=== PATIENT | female | born 1950 | race Caucasian/White ===

== ENCOUNTER 2017-08-07 13:42 | Emergency (ER) | payer MEDICARE, OTHER, SELFPAY ==
--- NOTE | 2017-08-07 | CT_ITS ---
CT abdomen pelvis wo con Ordering Physician: Bebe Levin MD Patient Age: 67 years: Female HISTORY: ITS.REASON: STONE PROTOCOL TECHNIQUE: Helical CT scanning performed through the abdomen and pelvis with no oral nor IV contrast utilized. Sagittal coronal reconstructions on CT workstation. Previous CT abdomen pelvis November 19, 2014 used for comparison. Findings. Lung bases are clear. Small hiatal hernia with Diffuse wall thickening GE junction distal esophagus region.. Heart upper normal in size Abdomen/pelvis. Lack of oral and IV contrast decreases sensitivity Liver, spleen, pancreas, adrenals unremarkable on this noncontrast study Gallbladder. No calcified stones possible sludge. RIGHT KIDNEY. Hydronephrosis. Small 3 mm projected over the posterior bladder on axial image 104 and is located at the distal limits of the right UVJ on the verge of passing into the bladder. Mild diffuse dilatation of the right ureter. Mild hydronephrosis. Mild stranding about the right kidney reflecting the obstructive uropathy less likely developing pam nephritis,..-Favor perinephric stranding secondary to the moderate hydronephrosis. Nonobstructive intrarenal calculi are noted at right kidney.. New since 2014:. These include 3 mm nonobstructive calculus seen at the posterior lower pole right kidney. (Axial image 48).... Also 32.5 mm calculus in some very tiny flecks of calcification upper pole calyx right kidney axial image 39 LEFT KIDNEY. Nonobstructive calculi which have become apparent since 2014 region millimeter calculus upper pole left kidney. Smaller 2 mm calculus midportion. Slightly more prominent just over 3 mm calculus upper pole. No adnexal masses. No retroperitoneal or mesenteric adenopathy nor pelvic adenopathy. No free fluid No bowel dilatation or obstruction. Terminal ileum is normal. Moderate stool throughout the colon. No evidence of appendicitis. Pelvis. Mild diffuse wall thickening of bladder could reflect cystitis. Again the catheter is projected over the posterior right bladder noted. Small postmenopausal uterus Osseous: L4/5. Trace degenerative listhesis L4 on L5. Mild disc space narrowing but with pronounced facet hypertrophy/arthropathy features combine to yield moderate central canal stenosis. These features have developed since 2013.. L5/S1 with prominent facet hypertrophy.. Moderate facet arthropathy L3/ /4 IMPRESSION:. 1. Obstructive uropathy on right. Mild hydronephrosis & mild dilatation entire right ureter-down to a small 3 mm calculus distal most right UVJ, on the verge verge of passing through the right UVJ into the bladder.. Stranding about right kidney most likely reflecting the moderate obstructive uropathy. Less likely developing pyelonephritis 2. Numerous other punctate nonobstructive calculi at the knees bilaterally additionally noted 3. Other observations in text.:. ... Small hiatal hernia with upper normal thickness at GE junction/. ...., Progression of degenerative changes spine Since 2014. Moderate central canal stenosis now seen at L4/5 level
[2017-08-07 13:54] VITALS: BP 175/97; PULSE 73; RESP 18; TEMP 36.5; O2SAT 98; BMI 24.7
[2017-08-07 14:26] LABS: Microscopic, Urine URINE MICROSCOPIC (MICROSCOPIC)
[2017-08-07 14:33] LABS: Basophils % 0.3 % (0.1-2.0); Eosinophils # 0.2 K/mm3 (0.0-0.4); Eosinophils % 1.3 % (0.1-12.0); Hemoglobin 13.7 g/dL (12.2-16.2); Lymphocytes # 1.8 K/mm3 (0.7-4.5); Lymphocytes % 16.3 K/mm3 (10-50); Mean Corpuscular HGB Conc 33.4 g/dL (31.8-35.4); Mean Corpuscular Hemoglobin 29.1 pg (27.0-31.2); Mean Corpuscular Volume 86.9 fl (81-99); Mean Platelet Volume 7.8 fl (7.4-10.4); Monocytes # 0.5 K/mm3 (0.1-1.0); Monocytes % 4.1 % (1.7-9.3); Neutrophils # 8.8 K/mm3 (1.8-7.8); Platelet Count 375 K/mm3 (142-424); Red Blood Count 4.72 M/mm3 (4.20-5.40); White Blood Count 11.2 K/mm3 (4.8-10.8)
[2017-08-07 14:34] LABS: Appearance,Urine CLOUDY (Clear); Bilirubin,Urine Negative (Negative); Blood, Urine LARGE (Negative); Color,Urine YELLOW (Yellow); Glucose,Urine (UA) Negative (Negative); Ketones,Urine 40 (Negative); Leukocyte Esterase,Urine Negative (Negative); Nitrate,Urine Negative (Negative); Protein,Urine Negative (Negative); Urobilinogen,Urine 0.2 EU/dl (0.2)
[2017-08-07 14:45] LABS: Bacteria,Urine 1+ /lpf; Mucus,Urine 1+ /lpf; RBC,Urine 20-50 #/hpf (0-3)
[2017-08-07 14:49] LABS: Blood Urea Nitrogen 12 mg/dL (7-18); Creatinine Clearance Estimated 41 mL/min (0-300); Estimated Glomerular Filt Rate 41 ml/min (>60); GFR (African American) 50 ML/MIN (>60)
[2017-08-07 15:03] LABS: Anion Gap 19.1 mEq/L (5-15); Blood Urea Nitrogen 12 mg/dL (7-18); Carbon Dioxide 19 mmol/L (21.0-32.0); Chloride 105 mmol/L (98-107); Creatinine Clearance Estimated 41 mL/min (0-300); Estimated Glomerular Filt Rate 41 ml/min (>60); GFR (African American) 50 ML/MIN (>60); Glucose 138 mg/dL (74-106); Potassium 3.1 mmoL/L (3.5-5.1); Sodium 140 mmol/L (136-145)
[2017-08-07 15:04] LABS: Alanine Aminotransferase 23 U/L (12-78); Alkaline Phosphatase 103 U/L (46-116); Aspartate Amino Transferase 18 U/L (15-37); Bilirubin,Total 0.7 mg/dL (0.2-1.0); Calcium 9.1 mg/dL (8.5-10.1); Globulin 3.9 gm/dl (1.3-3.2); Total Protein,Serum 7.9 gm/dL (6.4-8.2)
--- NOTE | 2017-08-07 15:30 | [facility]H.EDGENADL ---
ED Disposition Clinical Impression: Right distal ureteral calculus, Dehydration, UTI (urinary tract infection), Hypokalemia, Renal insufficiency Disposition: Left Against Medical Advice Condition on Discharge: Good Additional Instructions: The patient refused to be admitted, because she has dogs to care for. I advised her that she will need to be admitted for IV fluids and antibiotics but she declined. He stated that she will go home and drink plenty of fluids. Drink plenty of fluids. Start on antibiotics. Follow-up with Dr. Mckeon in the morning. Referrals: Remberto Mckeon MD [Primary Care Provider] - - Critical Care Critical Care Time: No Attestation: On 08/07/17, the high probability of a clinically significant, sudden or life threatening deterioration of the following system(s) required my full and direct attention, intervention and personal management. The time I documented below is in addition to time spent performing reported procedures but includes the following listed in this critical care notation. Medical Decision Making - Delta Inquiry Pt receiving controlled substance: No Delta was queried for this patient: No Vital Signs: 08/07/17 13:54 08/07/17 16:43 Temperature 97.7 F 98.8 F Temperature Source Oral Oral Pulse Rate 75 Pulse Rate [Right Brachial] 73 Respiratory Rate 18 18 Blood Pressure 156/86 Blood Pressure [Right Arm] 175/97 Blood Pressure Mean [Right Arm] 123 Blood Pressure Source Automatic Cuff Blood Pressure Source [Right Arm] Automatic Cuff Blood Pressure Position Sitting Blood Pressure Position [Right Arm] Sitting 02 Sat by Pulse Oximetry 98 Oxygen Delivery Method Room Air Room Air Oxygen Flow Rate (LPM) 98 - Lab Data Lab Results 08/07/17 14:20: WBC 11.2 H, RBC 4.72, Hgb 13.7, Hct 41.0, MCV 86.9, MCH 29.1, MCHC 33.4, RDW 13.0, Plt Count 375, MPV 7.8, Neut % (Auto) 78.0, Lymph % (Auto) 16.3, [place] % (Auto) 4.1, Eos % (Auto) 1.3, Baso % (Auto) 0.3, Neut # (Auto) 8.8 H, Lymph # (Auto) 1.8, [place] # (Auto) 0.5, Eos # (Auto) 0.2, Baso # (Auto) 0.0 08/07/17 14:20: Sodium 140, Potassium 3.1 L, Chloride 105, Carbon Dioxide 19 L, Anion Gap 19.1 H, BUN 12, Creatinine 1.30 H, Estimated Creat Clear 41, Estimated GFR 41 L, Est GFR ( Amer) 50 L, Glucose 138 H, Calcium 9.1, Total Bilirubin 0.7, AST 18, ALT 23, Alkaline Phosphatase 103, Total Protein 7.9, Albumin 4.0, Globulin 3.9 H, Albumin/Globulin Ratio 1.0 L 08/07/17 14:20: BUN 12, Creatinine 1.30 H, Estimated Creat Clear 41, Estimated GFR 41 L, Est GFR ( Amer) 50 L 08/07/17 14:20: Urine Color Yellow, Urine Appearance Cloudy, Urine pH 6.0, Ur Specific [place] 1.020, Urine Protein Negative, Urine Glucose (UA) Negative, Urine Ketones 40, Urine Blood Large, Urine Nitrate Negative, Urine Bilirubin Negative, Urine Urobilinogen 0.2, Ur Leukocyte Esterase Negative, Urine RBC 20-50, Urine WBC 3-5, Ur Squamous Epith Cells 3-5, Urine Bacteria 1+, Urine Mucus 1+ Result diagrams: 08/07/17 14:20 08/07/17 14:20 Orders (Tests/Meds): ED MEDICATIONS Discontinued Medications Generic Name Dose Route Start Last Admin Trade Name Collins PRN Reason Stop Dose Admin Sodium Chloride 1,000 mls @ 999 mls/hr 08/07/17 14:15 08/07/17 14:14 Sod Chloride 0.9% 1000ml Bag IV 08/07/17 15:15 999 mls/hr .Q1H1M REJI Administration Sodium Chloride 1,000 mls @ 999 mls/hr 08/07/17 15:45 08/07/17 15:51 Sod Chloride 0.9% 1000ml Bag IV 08/07/17 16:45 999 mls/hr .Q1H1M REJI Administration Ceftriaxone Sodium 1 gm/ 50 mls @ 100 mls/hr 08/07/17 15:40 08/07/17 15:50 Sodium Chloride IV 08/07/17 16:09 100 mls/hr ONCE ONE Administration Ketorolac Tromethamine 30 mg 08/07/17 14:07 08/07/17 14:13 Toradol 30mg/Ml Vial IV 08/07/17 14:08 30 mg ONCE ONE Administration Ondansetron HCl 4 mg 08/07/17 14:08 08/07/17 14:13 Zofran 4mg/2ml Vial IV 08/07/17 14:09 4 mg ONCE ONE Administration Potassium Chlo
--- NOTE | 2017-08-07 15:34 | ED_ITS ---
ED Disposition Clinical Impression: Right distal ureteral calculus, Dehydration, UTI (urinary tract infection), Hypokalemia, Renal insufficiency Disposition: Left Against Medical Advice Condition on Discharge: Good Additional Instructions: The patient refused to be admitted, because she has dogs to care for. I advised her that she will need to be admitted for IV fluids and antibiotics but she declined. He stated that she will go home and drink plenty of fluids. Drink plenty of fluids. Start on antibiotics. Follow-up with Dr. Mckeon in the morning. Referrals: Remberto Mckeon MD [Primary Care Provider] - - Critical Care Critical Care Time: No Attestation: On 08/07/17, the high probability of a clinically significant, sudden or life threatening deterioration of the following system(s) required my full and direct attention, intervention and personal management. The time I documented below is in addition to time spent performing reported procedures but includes the following listed in this critical care notation. Medical Decision Making - Delta Inquiry Pt receiving controlled substance: No Delta was queried for this patient: No Vital Signs: 08/07/17 13:54 08/07/17 16:43 Temperature 97.7 F 98.8 F Temperature Source Oral Oral Pulse Rate 75 Pulse Rate [Right Brachial] 73 Respiratory Rate 18 18 Blood Pressure 156/86 Blood Pressure [Right Arm] 175/97 Blood Pressure Mean [Right Arm] 123 Blood Pressure Source Automatic Cuff Blood Pressure Source [Right Arm] Automatic Cuff Blood Pressure Position Sitting Blood Pressure Position [Right Arm] Sitting 02 Sat by Pulse Oximetry 98 Oxygen Delivery Method Room Air Room Air Oxygen Flow Rate (LPM) 98 - Lab Data Lab Results 08/07/17 14:20: WBC 11.2 H, RBC 4.72, Hgb 13.7, Hct 41.0, MCV 86.9, MCH 29.1, MCHC 33.4, RDW 13.0, Plt Count 375, MPV 7.8, Neut % (Auto) 78.0, Lymph % (Auto) 16.3, [place] % (Auto) 4.1, Eos % (Auto) 1.3, Baso % (Auto) 0.3, Neut # (Auto) 8.8 H, Lymph # (Auto) 1.8, [place] # (Auto) 0.5, Eos # (Auto) 0.2, Baso # (Auto) 0.0 08/07/17 14:20: Sodium 140, Potassium 3.1 L, Chloride 105, Carbon Dioxide 19 L, Anion Gap 19.1 H, BUN 12, Creatinine 1.30 H, Estimated Creat Clear 41, Estimated GFR 41 L, Est GFR ( Amer) 50 L, Glucose 138 H, Calcium 9.1, Total Bilirubin 0.7, AST 18, ALT 23, Alkaline Phosphatase 103, Total Protein 7.9 , Albumin 4.0, Globulin 3.9 H, Albumin/Globulin Ratio 1.0 L 08/07/17 14:20: BUN 12, Creatinine 1.30 H, Estimated Creat Clear 41, Estimated GFR 41 L, Est GFR ( Amer) 50 L 08/07/17 14:20: Urine Color Yellow, Urine Appearance Cloudy, Urine pH 6.0, Ur Specific [place] 1.020, Urine Protein Negative, Urine Glucose (UA) Negative, Urine Ketones 40, Urine Blood Large, Urine Nitrate Negative, Urine Bilirubin Negative, Urine Urobilinogen 0.2, Ur Leukocyte Esterase Negative, Urine RBC 20- 50, Urine WBC 3-5, Ur Squamous Epith Cells 3-5, Urine Bacteria 1+, Urine Mucus 1 + Result diagrams: 08/07/17 14:20 08/07/17 14:20 Orders (Tests/Meds): ED MEDICATIONS Discontinued Medications Generic Name Dose Route Start Last Admin Trade Name Scottq PRN Reason Stop Dose Admin Sodium Chloride 1,000 mls @ 999 mls/hr 08/07/17 14:15 08/07/17 14:14 Sod Chloride 0.9% 1000ml Bag IV 08/07/17 15:15 999 mls/hr .Q1H1M REJI Administration Sodium Chloride 1,000 mls @
--- NOTE | 2017-08-07 15:54 | PC.NURSE ---
dr be spoke with dr green he agreed to admit pt . dr be went to tell pt she refused admission and also refuses to sign AMA
[2017-08-07 16:43] VITALS: BP 156/86; PULSE 75; RESP 18; TEMP 37.1; O2SAT 98
== END 2017-08-07 16:52 | disposition left against medical advice (07) ==
PROVIDERS: Emergency Provider Emergency Medicine; Family Provider Internal Medicine Adolescent Medicine; PCP Internal Medicine Adolescent Medicine
DX: N13.2 Hydronephrosis with renal and ureteral calculous obstruction (principal); E86.0 Dehydration; N39.0 Urinary tract infection, site not specified; E87.6 Hypokalemia; N28.9 Disorder of kidney and ureter, unspecified; R27.0 Ataxia, unspecified
CPT/HCPCS: 74176; 80053; 81001; 82565; 84520; 85025; 87086; 96375; 99283; J2405

== ENCOUNTER → 2018-11-03 14:14 | Outpatient (CLI) | payer MEDICARE, OTHER, SELFPAY ==
--- NOTE | 2018-11-03 14:22 | CT_ITS ---
CT abdomen pelvis wo con INDICATION: ITS.REASON: LEFT SIDED LOW BACK PAIN,H/O NEPHROLITHIASIS,HEMATURIA ORDERING PHYSICIAN: Chely Johnson APRN PATIENT AGE: 68 years COMPARISON: Previous CT abdomen pelvis TECHNIQUE: No oral nor IV contrast utilized Axial images obtained with sagittal and coronal reformats. All CT scans at the facility use one or more dose reduction, viz: automated exposure control, ma/kV adjustment per patient size (including targeted exams where dose is matched to indication, i.e. head), or iterative reconstruction technique. FINDINGS: Lower thorax THAT. Calcified granuloma seen anterior RML 5.5 mm size. Minor scarring and you right lung base but no active disease. Abdomen/pelvis the lack of oral and IV contrast decreases sensitivity somewhat. The noncontrast images the liver, spleen, adrenals appear satisfactory. Gallbladder. No calcified gallstones. No biliary ductal dilatation. Pancreas. Slight fullness towards the tail of pancreas is unchanged July 2017 study. Stable appearance. TRACT. ...... Obstructive uropathy on left. LEFT hydronephrosis with slight stranding about the left kidney. . 4 mm diameter x 7 mm length mm ureteral calculus at the proximal-mid left ureter...... just to the left of L4 vertebral body on the CT fiberglasser view. There is mild stranding about the proximal ureter but distal ureter is normal caliber At the mid left kidney itself, also note nonobstructive 3.5 mm Mm calculus.. RIGHT KIDNEY. No obstruction. Small 2.5 mm nonobstructing calculus at upper pole calyx. Right ureter unremarkable. PELVIS No calculi seen within the bladder.. Urinary bladder unremarkable.. Modest size postmenopausal uterus. No adnexal masses. Scattered phleboliths pelvic basin. GI tract. A moderate to generous stool at the cecum and right colon. No evidence of appendicitis. At the left: There is some mild stranding posterior to the descending colon with some scant fluid outlining Gerota's fascia inferiorly. Although this may be due to the obstructive uropathy may want to keep this feature in mind. I doubt any associated colitis or diverticulitis but briefly entertained. Also you may want toVerify amylase and lipase are normal but there is scant fluid tracking towards left gutter. Bones. Mild degenerative changes spine. Some minor grade 1 listhesis of L4 on L5 with mild diffuse disc bulge here. Prominent facet hypertrophy. Mild to moderate spinal stenosis. IMPRESSION 1. Obstructive uropathy on the left. \ This is due to a 4 mm diameter 7 mm length stone at the proximal/mid left ureter, ( just to the left at L4 level on the CT fiberglasser view) 2. mild stranding about the left kidney due to the fairly high-grade obstructive uropathy. . With this there also is some minimal fluid outlining Gerota's fascia anteriorly & towards the left gutter with some minor stranding posterior to the left colon ..-most certainly changes are related to the obstruction, & doubt associated colitis or other conditions 3. Small nonobstructive less than 3 mm calculi at both upper left & right kidney
== END ==
PROVIDERS: PCP Internal Medicine Adolescent Medicine; Visit Provider Nurse Practitioner Family
DX: M54.5 Low back pain (principal); R31.29 Other microscopic hematuria; Z87.442 Personal history of urinary calculi
CPT/HCPCS: 74176

== ENCOUNTER → 2018-11-07 13:21 | Outpatient (CLI) | payer MEDICARE, OTHER, SELFPAY ==
[2018-11-07 14:13] LABS: Basophils % 0.5 % (0.1-2.0); Eosinophils # 0.4 K/mm3 (0.0-0.4); Eosinophils % 9.4 % (0.1-12.0); Hematocrit 36.8 % (37.0-47.0); Hemoglobin 12.3 g/dL (12.2-16.2); Lymphocytes # 1.5 K/mm3 (0.7-4.5); Lymphocytes % 33.5 % (10-50); Mean Corpuscular HGB Conc 33.5 g/dL (31.8-35.4); Mean Corpuscular Hemoglobin 29.1 pg (27.0-31.2); Mean Corpuscular Volume 86.8 fl (81-99); Monocytes # 0.2 K/mm3 (0.1-1.0); Monocytes % 5.5 % (1.7-9.3); Neutrophils # 2.2 K/mm3 (1.8-7.8); Platelet Count 310 K/mm3 (142-424); Red Blood Count 4.24 M/mm3 (4.20-5.40); Red Cell Distribution Width 12.9 % (11.5-17.5); White Blood Count 4.4 K/mm3 (4.8-10.8)
[2018-11-07 14:33] LABS: Activated Partial Thrombo Time 27.2 seconds (23.6-34.0); INR 0.97 (0.9-1.1)
[2018-11-07 15:12] LABS: Alanine Aminotransferase 18 U/L (12-78); Albumin Level 3.5 gm/dL (3.4-5.0); Alkaline Phosphatase 78 U/L (46-116); Anion Gap 13.9 mEq/L (5-15); Aspartate Amino Transferase 11 U/L (15-37); Bilirubin,Total 0.4 mg/dL (0.2-1.0); Blood Urea Nitrogen 21 mg/dL (7-18); Calcium 9.2 mg/dL (8.5-10.1); Carbon Dioxide 26 mmol/L (21.0-32.0); Chloride 106 mmol/L (98-107); Creatinine,Serum 1.14 mg/dL (0.55-1.02); Estimated Glomerular Filt Rate 48 ml/min (>60); GFR (African American) 58 ML/MIN (>60); Globulin 3.6 gm/dl (1.3-3.2); Glucose 94 mg/dL (74-106); Potassium 3.9 mmoL/L (3.5-5.1); Sodium 142 mmol/L (136-145); Total Protein,Serum 7.1 gm/dL (6.4-8.2)
== END ==
PROVIDERS: Visit Provider Urology
DX: N20.9 Urinary calculus, unspecified (principal); R31.9 Hematuria, unspecified
CPT/HCPCS: 36415; 80053; 85025; 85610; 85730

== ENCOUNTER → 2018-12-05 08:27 | Outpatient (CLI) | payer MEDICARE, OTHER, SELFPAY ==
--- NOTE | 2018-12-05 08:35 | XR_ITS ---
XR KUB HISTORY: ITS.REASON: KIDNEY STONE ORDERING PHYSICIAN: David Ray MD PATIENT AGE: 68 years COMPARISON: None FINDINGS: The bowel gas pattern is unremarkable. No obvious obstruction.. No abnormal calcifications are evident. No obvious renal or ureteral calculi.. There are multiple calcific densities in the pelvis which may be due to phleboliths. Previously noted left mid ureteral stone is not identified. IMPRESSION: Negative KUB, no acute finding
== END ==
PROVIDERS: PCP Nurse Practitioner Family; Visit Provider Urology
DX: N20.0 Calculus of kidney (principal)
CPT/HCPCS: 74018

== ENCOUNTER → 2019-06-18 13:05 | Outpatient (CLI) | payer MEDICARE, OTHER, SELFPAY ==
--- NOTE | 2019-06-18 13:09 | XR_ITS ---
PROCEDURE: XR KUB CLINICAL INDICATION: kidney stone COMPARISON: ABDPELWO CT abdomen pelvis wo con from 11/03/2018 from 12/05/2018 FINDINGS: There are multiple pelvic calcifications consistent with vascular calcifications. No definite renal or ureteral calculi evident. IMPRESSION: No acute findings. Dictated by: Benton Dela Cruz MD 06/18/2019 17:39 Electronically signed by Benton Dela Cruz MD in [place] 06/18/2019 17:39
== END ==
PROVIDERS: PCP Internal Medicine Adolescent Medicine; Visit Provider Urology
DX: N20.0 Calculus of kidney (principal)
CPT/HCPCS: 74018

== ENCOUNTER → 2021-03-25 16:45 | Outpatient (CLI) | payer MEDICARE, OTHER, SELFPAY ==
--- NOTE | 2021-03-25 16:50 | CT_ITS ---
PROCEDURE INFORMATION: Exam: CT Abdomen And Pelvis Without Contrast Exam date and time: 03/25/2021 4:50 PM Age: 70 years old Clinical indication: Abdominal pain; Flank; Left; Prior surgery; Surgery date: 1-6 months; Surgery type: Lazar stone extraction of stone. ; Additional info: Lt flank pain, HX of nephrolithiasis TECHNIQUE: Imaging protocol: Computed tomography of the abdomen and pelvis without contrast. Radiation optimization: All CT scans at this facility use at least one of these dose optimization techniques: automated exposure control; mA and/or kV adjustment per patient size (includes targeted exams where dose is matched to clinical indication); or iterative reconstruction. COMPARISON: [facility] CT abdomen pelvis wo con 11/03/2018 2:25 PM FINDINGS: Lungs: Calcified nodule in the right middle lobe. Mild bibasilar atelectasis. Mediastinal space: Small hiatal hernia. Liver: Mild decreased hepatic parenchymal attenuation. Gallbladder and bile ducts: Normal. No calcified stones. No ductal dilation. Pancreas: Normal. No ductal dilation. Spleen: Normal. No splenomegaly. Adrenal glands: Normal. No mass. Kidneys and ureters: [id number] left hydronephrosis. Rjhn-pd-[id number] left hydroureter. Surrounding stranding is seen. This appears to be due to a 5 mm and an adjacent 2 mm stone in the distal left ureteral. No nephrolithiasis. Bladder is under distended. Stomach and bowel: Unremarkable. No obstruction. No mucosal thickening. Appendix: No evidence of appendicitis. Intraperitoneal space: Unremarkable. No free air. No significant fluid collection. Vasculature: Unremarkable. No abdominal aortic aneurysm. Lymph nodes: Unremarkable. No enlarged lymph nodes. Urinary bladder: See Kidneys and ureters finding. Reproductive: Unremarkable as visualized. Bones/joints: Unremarkable. No acute fracture. Soft tissues: Unremarkable. IMPRESSION: 1. [id number] left hydronephrosis due to distal left ureteral stones, the larger of which measures 5 mm. 2. Mild hepatic steatosis. 3. Small hiatal hernia.
== END ==
PROVIDERS: PCP Internal Medicine Adolescent Medicine; Visit Provider Nurse Practitioner Family
DX: R10.9 Unspecified abdominal pain (principal); Z87.442 Personal history of urinary calculi
CPT/HCPCS: 74176; 87086

== ENCOUNTER → 2021-10-12 12:54 | Outpatient (CLI) | payer MEDICARE, OTHER, SELFPAY ==
--- NOTE | 2021-10-12 13:01 | XR_ITS ---
FINAL REPORT CLINICAL HISTORY: KIDNEY STONE COMPARISON: June 18, 2019 FINDINGS: There is a nonobstructive bowel gas pattern. There are no abnormally dilated loops of small bowel. There are presumed phleboliths the pelvis. There is a probable 2 mm stone in the lower pole of the right kidney. IMPRESSION: Probable 2 mm stone, lower pole right kidney. Reviewed, Interpreted and Dictated by Amaury Ramirez III, MD Transcribed by Michael Murillo Authenticated by Amaury Ramirez III, MD on 10/12/2021 02:09:45 PM [facility]
== END ==
PROVIDERS: PCP Nurse Practitioner Family; Visit Provider Urology
DX: N20.0 Calculus of kidney (principal)
CPT/HCPCS: 74018

== ENCOUNTER → 2022-05-07 13:25 | Outpatient (CLI) | payer MEDICARE, OTHER, SELFPAY ==
--- NOTE | 2022-05-07 13:31 | XR_ITS ---
FINAL REPORT CLINICAL HISTORY: UROLITHIASIS COMPARISON: 10/12/2021 FINDINGS: A single view of the abdomen was obtained. There is a nonobstructive bowel gas pattern. There are no abnormally dilated loops of small bowel. There are multiple presumed phleboliths in the pelvis. No definite renal stone is identified. IMPRESSION: Multiple presumed phleboliths in the pelvis with no definite renal stone. Reviewed, Interpreted and Dictated by Amaury Ramirez III, MD Transcribed by Crystal Méndez Authenticated and [facility]
== END ==
PROVIDERS: PCP Nurse Practitioner Family; Visit Provider Urology
DX: N20.0 Calculus of kidney (principal)
CPT/HCPCS: 74018

== ENCOUNTER → 2022-09-02 12:26 | Outpatient (CLI) | payer MEDICARE, OTHER, SELFPAY ==
--- NOTE | 2022-09-02 12:35 | XR_ITS ---
FINAL REPORT CLINICAL HISTORY: LT FLANK PAIN COMPARISON: 05/07/2022 FINDINGS: A single supine view of the abdomen was obtained. The bowel gas pattern is normal. There is a moderate-large amount of stool in the colon. No renal stones are identified. There are multiple pelvic calcifications, likely phleboliths, stable. Osseous structures are within normal limits. IMPRESSION: No acute intraabdominal abnormality. Moderate-large stool. Reviewed, Interpreted and Dictated by Brigida Covarrubias MD Transcribed by Crystal Méndez Authenticated and [facility]
== END ==
PROVIDERS: PCP Nurse Practitioner Family; Visit Provider Nurse Practitioner Family
DX: R10.9 Unspecified abdominal pain (principal); Z87.442 Personal history of urinary calculi
CPT/HCPCS: 74019

== ENCOUNTER 2024-02-09 11:45 | Outpatient (CLI) | payer MEDICARE, OTHER, SELFPAY ==
--- NOTE | 2024-02-09 11:54 | CT_ITS ---
APPROVED REPORT Double [employer]inder: CLINICAL INDICATION Chest Pain TECHNIQUE Image Acquisition: A 128 slice MDCT scanner (Veenomea View) was used for data acquisition. A noncontrast coronary calcium scan was performed. A CT attenuation threshold of 130 Hounsfield units (HU) was used for the detection of calcium in contiguous voxels of 1 sq mm in area to be counted as individual lesions. Bolus tracking in the ascending aorta with a threshold of 180 HU was performed. Immediately afterwards, ECG synchronized cardiac CT was then performed from the cardiac base to apex using retrospective gating with ECG tube current modulation. A total of 85 mL of Isovue 370 mg/mL contrast medium was administered at 5 mL/sec followed by a saline flush using a biphasic injection protocol. A tube voltage of 120 KVp was used. The patient received the following medications prior to the cardiac CT. 0.8 mg of sublingual nitroglycerin The average heart rate at the time of acquisition was 51 bpm and regular. Image Reconstruction Transaxial images were reconstructed at 0.67 mm slide thickness. Data was reviewed interactively on an advanced workstation capable of 2 and 3-dimensional displays in all conventional reconstruction formats, including multiplanar reformations, maximum intensity projections, curved multiplanar reformations, and volume rendered reconstructions. When applicable, selected routine images describing the relevant coronary anatomy and pathology were saved and sent to PACS. Complications None Technical Quality Overall image quality was good. Coronary artery opacification was adequate. Total DLP (Dose-Length Product) is 1691.7 mGy-cm. The reported value represents the total of one or more individual components during the CT acquisition of this date and at this time, and as such, the same value may appear in more than one CT report depending on the interpreting/reporting physicians. COMPARISON None FINDINGS CT Coronary Calcium Scoring LMA (Left Main Artery) = 0 LAD (Left Anterior Descending) = 0 LCX (Left Coronary Circumflex) = 0 RCA (Right Coronary Artery) = 208 Total Calcium Score = 208 using the AJ-130 method. The observed calcium score of 208 is at 78th percentile for subjects of the same age, sex, and race/ethnicity. The interpretation of the calcium heart score is based on the following continuum*: 0 = no calcified plaque detected (risk of coronary artery disease is very low ??? less than 5%) 1-10 = calcium detected in extremely minimal levels (risk of coronary diseases is still low ??? less than 10%) 11-100 = mild levels of plaque detected with certainty (mild or minimal narrowing of heart arteries is likely) 101-400 = definite,at least moderate levels of plaque detected (relatively high risk of a heart attack within 3-5 years) >401-999 = extensive levels of plaque detected (high risk of heart attack, high levels of vascular disease are present, high likelihood of at least one significant coronary narrowing) *The calcium heart score quantifies the burden of coronary calcification/plaque in the coronary arteries. The calcium heart score is not able to evaluate the presence or burden of non-calcified (i.e. soft) plaque. There is no identifiable calcification in the aortic valve, mitral annulus or mitral valve, pericardium, or myocardium. Coronary CT Angiography The coronary arterial system is right dominant. Quantitative Stenosis Grading: Left Main (LM): The left main originates normally from the left sinus of Valsalva. The LM bifurcates into the left anterior descending artery and left circumflex artery. The LM is patent with no evidence of atherosclerosis. Left Anterior Descending (LAD) and Diagonal Branches: The LAD g
[2024-02-09 12:18] VITALS: BP 208/104; PULSE 54; RESP 18; O2SAT 99; BMI 24.1
[2024-02-09 12:40] VITALS: BP 187/101; PULSE 54; RESP 18; O2SAT 98
[2024-02-09 12:45] VITALS: BP 152/80; PULSE 56; RESP 18; O2SAT 96
[2024-02-09 12:50] VITALS: BP 149/74; PULSE 48; RESP 18; O2SAT 98
[2024-02-09 12:58] VITALS: BP 188/96; PULSE 56; RESP 18; O2SAT 97
== END 2024-02-09 23:59 | disposition home or self-care (01) ==
PROVIDERS: PCP Nurse Practitioner Family; Visit Provider Nurse Practitioner Family
DX: I10 Essential (primary) hypertension (principal); M79.602 Pain in left arm
CPT/HCPCS: 75574; Q9967

== ENCOUNTER 2024-02-21 07:39 | Outpatient (CLI) | payer MEDICARE, OTHER, SELFPAY ==
--- NOTE | 2024-02-21 07:44 | CA_ITS ---
FINAL REPORT TECHNIQUE: Grayscale, color Doppler and duplex Doppler ultrasound of the kidneys, aorta and renal arteries was performed. Multiple velocities were measured. CLINICAL HISTORY: HTN,KIDNEY STONES HX COMPARISON: None FINDINGS: Aorta velocity: 80.2 cm/sec Right kidney: 9.1 cm. No evidence of hydronephrosis or mass. Right intrarenal RI: 0.61 Right renal artery velocity: 147.6 cm/sec. Right RAR (Renal artery-Aortic Ratio): 1.84 Left Kidney: 9.5 cm. No evidence of hydronephrosis or mass. Left intrarenal RI: 0.83 Left renal artery velocity: One 1.2 cm/sec. Left RAR (Renal Artery-Aortic Ratio): 1.26 IMPRESSION: No evidence of significant renal artery stenosis. CT angiogram or postcontrast MR angiogram would be more sensitive for evaluation of possible renal artery stenosis. Reviewed, Interpreted and Dictated by Amaury Ramirez III, MD Transcribed by Marianela Drummond Authenticated and [facility]
--- NOTE | 2024-02-21 09:12 | CT_ITS ---
FINAL REPORT TECHNIQUE: Thin section axial CT with IV contrast supplemented with multiplanar reconstruction under CT angiogram protocol. This study was performed with techniques to keep radiation doses as low as reasonably achievable (ALARA). Individualized dose reduction techniques using automated exposure control or adjustment of mA and/or kV according to the patient''s size were employed. NASCET criteria was utilized during interpretation. CLINICAL HISTORY: resistant hypertension COMPARISON: None FINDINGS: Aortic arch: Arch shows no significant narrowing. Great vessel origins are widely patent. Right carotid: No significant stenosis is seen of the cervical common or internal carotid artery. Left carotid: No significant stenosis is seen of the cervical common or internal carotid artery. Vertebral: Left vertebral artery is dominant. No significant stenosis is present. IMPRESSION: No evidence of significant stenosis or occlusion. Reviewed, Interpreted and Dictated by Amaury Ramirez III, MD Transcribed by Taty Weinberg Authenticated and [facility]
--- NOTE | 2024-02-21 09:13 | CT_ITS ---
FINAL REPORT CLINICAL HISTORY: RESISTANT HYPERTENSION COMPARISON: None FINDINGS: Axial images of the head were obtained without contrast. Coronal reformatted images were also obtained. This study was performed with techniques to keep radiation doses as low as reasonably achievable (ALARA). Individualized dose reduction techniques using automated exposure control or adjustment of mA and/or kV according to the patient''s size were employed. There is generalized age-appropriate atrophy. Periventricular low-attenuation areas are seen consistent with mild chronic ischemic changes. There is no evidence of intracranial hemorrhage or mass. There is no evidence of acute infarct. There is no evidence of shift of the midline structures. No skull abnormality is seen on the bone window images. There is a retention cyst or polyp in the right maxillary sinus. IMPRESSION: Atrophy and mild periventricular chronic ischemic changes. No acute intracranial abnormality identified. Reviewed, Interpreted and Dictated by Amaury Ramirez III, MD Transcribed by Taty Weinberg Authenticated and [facility]
[2024-02-21] MEDS: 0.9 % SODIUM CHLORIDE 50 ML VIAL IV (09:50)
[2024-02-21] MEDS: IOPAMIDOL-370 (76%);100ML BOTTLE 80 ML IV (09:50)
== END 2024-02-21 23:59 | disposition home or self-care (01) ==
LOC: RT 07:39
PROVIDERS: PCP Nurse Practitioner Family; Visit Provider Nurse Practitioner Family
DX: I10 Essential (primary) hypertension (principal); I1A.0 Resistant hypertension
CPT/HCPCS: 70450; 70498; 93976; Q9967

== ENCOUNTER 2024-05-18 12:38 | Outpatient (CLI) | payer MEDICARE, OTHER, SELFPAY ==
--- NOTE | 2024-05-18 | CA_ITS ---
APPROVED REPORT EXAM: Comprehensive 2D, Doppler, and color-flow Echocardiogram S3B Multi Sensor Operator: Jessica Marlow CRT Ht: 5 ft 1 in Wt: 135lbs BSA: 1.60 BP: 158/98 mmHg Indications: Hypertension/HDD, ex smoker, kidney stones 2D Dimensions LA Volume 26.10 mL LA Volume Index 16.31 mL/m2 (M/F) 16-34 M-Mode Dimensions RVDd 2.35 cm (0.9-2.6) LA Diam 3.48 cm (1.9-4.0) LVDd 4.86 cm (3.5-5.7) LVDs 2.83 cm (3.5-5.7) IVSd 0.83 cm (0.6-1.1) PWd 0.68 cm (0.6-1.1) EF (Teich) 72.60% FS 41.80% EDV (Teich) 110.70 mL TAPSE 2.09 (<1.7) ESV (Teich) 30.30 mL LV Diastology E Decel Time 193 (160-240 msec) E/A Ratio 0.97 MED A' 12.90 cm/s LAT A' 14.00 cm/s Aortic Valve AO Peak GR. 9.60 mmHg Mitral Valve MV A Velocity 76.0 (40-130 cm/s) E/A Ratio 0.97 Pulmonary Valve PV Peak Velocity 168.0 (50-150 cm/s) Tricuspid Valve TR P. Velocity 313.00 cm/s RAP Estimate 10.00 mmHg RVSP 49.20 mmHg Left Ventricle The left ventricle is normal size. The left ventricular systolic function is normal. The left ventricular ejection fraction is within the normal range. There is normal left ventricular wall thickness. There is normal LV segmental wall motion. Diastolic function is indeterminate. LVEF is 55%. Right Ventricle Right ventricle is mildly dilated. The right ventricular systolic function is normal. Atria Left atrium is mildly dilated. Right atrium is mildly dilated. There is no Doppler evidence of interatrial shunt. Aortic Valve The aortic valve is mildly thickened. There is no aortic valvular stenosis. Mild aortic regurgitation. Mitral Valve The mitral valve leaflets are mildly thickened. Mild mitral regurgitation. No evidence of mitral valve stenosis. Tricuspid Valve The tricuspid valve leaflets are thin and pliable. Mild tricuspid regurgitation. RVSP is 40-45 mmHg. Pulmonic Valve The pulmonary valve is normal in structure. Trace pulmonic regurgitation. Great Vessels The aortic root is normal in size. The ascending aorta is normal in size. IVC is normal in size and collapses >50% with inspiration. Pericardium There is no pericardial effusion. Other Information Study Quality: Fair Conclusion Normal biventricular systolic function. Mild RV dilation. Mild biatrial dilation. Mild MR, mild TR, mild AR. Elevated RVSP 40-45 mmHg. Electronically signed by : Bree Vazquez MD 05/25/2024 23:59:56
== END 2024-05-18 23:59 | disposition home or self-care (01) ==
LOC: RT 12:39
PROVIDERS: PCP Internal Medicine Adolescent Medicine; Visit Provider Internal Medicine
DX: I51.7 Cardiomegaly (principal); I15.9 Secondary hypertension, unspecified; R06.00 Dyspnea, unspecified
CPT/HCPCS: 93306